=== PATIENT | male | born 1965 | race Two or more races ===

== ENCOUNTER 2025-08-01 09:51 | Emergency (ER) | payer OTHER, SELFPAY ==
[~2025-08-01] VITALS: Ht 157.5 cm; Wt 60.8 kg
[2025-08-01] MEDS ORDERED: IBUP-1454 PO (12:23)
[2025-08-01] MEDS ORDERED: LIDO5DIS21 TOP (12:23)
[2025-08-01] MEDS ORDERED: METH-1181 PO (12:23)
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
[2025-08-01 12:29] VITALS: BP 126/62; PULSE 66; RESP 16; TEMP 98.1; O2SAT 98
== END 2025-08-01 12:31 | disposition home or self-care (01) ==
LOC: ER 09:51
DX: S39.012A Strain of muscle, fascia and tendon of lower back, initial encounter (principal); S20.20XA Contusion of thorax, unspecified, initial encounter; V89.2XXA Person injured in unspecified motor-vehicle accident, traffic, initial encounter; Y93.I9 Activity, other involving external motion; Y92.488 Other paved roadways as the place of occurrence of the external cause; Y99.8 Other external cause status

== ENCOUNTER 2025-08-05 08:54 | Emergency (ER) | payer SELFPAY ==
[~2025-08-05] VITALS: Ht 165.1 cm; Wt 60.7 kg
[~2025-08-05 08:54] MED LIST: IBUP-1454 PO; LIDO5DIS21 TOP; METH-1181 PO
[2025-08-05 09:15] VITALS: BP 157/97; PULSE 72; RESP 16; TEMP 98.3; O2SAT 97
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
[2025-08-05] MEDS: KETOROLAC TROMETH 60MG/2ML VIAL IM ONE (09:31)
--- NOTE | 2025-08-05 09:52 | DVH ---
EXAMINATION: XY L RIB X RAY INDICATION: FALL COMPARISON: None TECHNIQUE: Frontal view of the chest and 2 views of the left ribs history FINDINGS: No focal consolidation, pleural effusion or significant pneumothorax. Normal cardiomediastinal silhouette. Minimally displaced fractures of the left posterolateral 10th and 9th ribs. IMPRESSION: No acute cardiopulmonary disease. Minimally displaced fractures of the left posterolateral 10th and 9th ribs.
[2025-08-05] MEDS ORDERED: TRAM-626 PO (10:09)
== END 2025-08-05 10:13 | disposition home or self-care (01) ==
LOC: ER 08:54
DX: S22.42XA Multiple fractures of ribs, left side, initial encounter for closed fracture (principal); W01.0XXA Fall on same level from slipping, tripping and stumbling without subsequent striking against object, initial encounter; Y93.89 Activity, other specified; Y92.89 Other specified places as the place of occurrence of the external cause; Y99.8 Other external cause status
CPT/HCPCS: 71101; 96372; 99283; J1885